=== PATIENT | male | born 1975 | race Caucasian/White ===

== ENCOUNTER 2019-11-14 10:54 | Emergency (ER) | payer OTHER ==
[~2019-11-14] VITALS: Ht 185.4 cm; Wt 95.3 kg
[2019-11-14 11:01] VITALS: Ht 185.4 cm; Wt 95.3 kg
[2019-11-14 13:25] VITALS: BP 138/101
== END 2019-11-14 13:26 | disposition home or self-care (01) ==
LOC: ED 10:54
DX: M54.17 Radiculopathy, lumbosacral region (principal)
CPT/HCPCS: J3010